=== PATIENT | male | born 1965 | race Caucasian/White ===

== ENCOUNTER → 2016-05-01 | Outpatient (CLI) | payer BC ==
--- NOTE | 2016-05-01 22:04 | PN ---
DATE OF SERVICE: 05/01/2016 This 51-year-old gentleman has been followed in the sleep center. He is here to discuss results of sleep studies and to check on his treatment with CPAP. I discussed results of his sleep studies with the patient in detail. He has extremely severe obstructive sleep apnea-hypopnea syndrome with apnea-hypopnea index of 64.2 with oxygen desaturation to 46.5%. By results of our sleep study at the pressure of 11, patient's respiration was mostly under control. At present patient is on treatment with CPAP. I checked his CPAP unit. Usage is 22 out of 30 nights for more than 4 hours, which demonstrated acceptable compliance. Pressure is 11 cm of water. Leak is 4 L/minute, which is not significant. Apnea-hypopnea index reading from the machine is 18.2, which is above the range which I want to see. Patient feels better with the machine during the night and during the day. [place] Sleepiness Scale today is 9. MEDICATIONS: None. During physical exam, patient is in no distress, but blood pressure was increased to 189/122. Patient indicates that sometimes he feels nervousness when he is in the physician's office, and he is also under stress related to his work. He does not feel any shortness of breath, chest pain, headache or dizziness. Heart rate is about 100. RR 14. Weight 268.4. Temperature 98.0. Oxygen saturation at room air 98%. HEENT: PERRLA, EOMI. Evaluation of oropharynx showed tongue protrudes midline; low position of soft palate. NECK: Supple. No JVD. Thyroid is not palpable. LUNGS: Clear to percussion and to auscultation. Good air exchange. No wheezing or rhonchi. HEART: S1, S2 tachycardic. ABDOMEN: Soft and nontender. Bowel sounds are present. No organomegaly appreciated. EXTREMITIES: No clubbing or cyanosis. LABOR RELATIONS SPECIALIST: Awake, alert, and oriented x3. Cranial nerves 2 to 7 intact. There is no fasciculation or atrophy noted. No focal deficits observed. IMPRESSION: 1. Severe obstructive sleep apnea-hypopnea syndrome. Apnea-hypopnea index 64.2 with oxygen desaturation severely low at 46.5%. Patient has demonstrated good compliance with treatment and is benefiting from treatment. Respiration has improved, but not normalized by results of reading from the machine. 2. Obesity. 3. Hypertension in the office. PLAN: 1. I changed the machine regimen to automated up to 20 cm of water. 2. Patient will continue to use equipment every night for the whole night. 3. Losing weight. 4. Patient will monitor his blood pressure, preferably 2 or 3 times a day for several days, and follow with the primary care physician for monitoring blood pressure and, if necessary, treatment with medications. 5. Low-sodium diet. 6. Patient may use valerian root during the day for nervousness; may buy it over the counter. 7. No driving if feeling any sleepiness. 8. I will see the patient for follow-up visit in one month. Thank you very much for allowing me to participate in the management your patient. Sincerely, Jacobo Vázquez MD, PhD, FAASM. Diplomat of [place] [employer], Sleep Medicine Board by [place] [employer], [place] [employer]
== END | disposition home or self-care (01) ==
LOC: SLEEP 14:13
PROVIDERS: ATTEND Internal Medicine
DX: G47.33 Obstructive sleep apnea (adult) (pediatric) (principal); I10 Essential (primary) hypertension; E66.9 Obesity, unspecified; Z99.89 Dependence on other enabling machines and devices

== ENCOUNTER → 2016-06-13 | Outpatient (CLI) | payer BC ==
--- NOTE | 2016-06-13 20:15 | PN ---
DATE OF SERVICE: 06/13/2016 This patient is a 51-year-old gentleman who has been followed in the sleep center for treatment of obstructive sleep apnea/hypopnea syndrome. During previous visit patient was at the pressure 11 cm of water, which by results of our sleep study was perfect for patient's respiration. By results of the sleep study in the office, apnea-hypopnea index at that pressure was 1.9. Patient slept with that pressure for about 1-1/2 hour, but during previous visit again his apnea-hypopnea index was increased to 18, and I switched his machine to automatic regimen with the range of pressure from 4 to 20 cm of water. Then patient tried to use the machine with this regimen, but he felt the pressure was too much, and he was not able to use it. Then pressure in the machine was changed to the range of 4 to around 15. At present patient comes for follow-up visit. He is trying to use his machine every night. I checked his CPAP unit. It is an automatic regimen, and most of the time pressure in the machine is around 15 cm of water. Leak is 17 L/minute. With this regimen, average apnea-hypopnea index was 12.6. For the last night it was ( ) it was only 9.6. Patient used it 26 out of 30 nights, but only about 12 nights for more than 4 hours. Leak is 17 L/minute. Sometimes, according to the patient, he has a leak from his mask to the eye area. He is using a full-face mask which also covers the nose. [place] Sleepiness Scale today is 9. MEDICATIONS: None. PHYSICAL EXAMINATION: Patient is in no distress. VITAL SIGNS: BP on the right arm 226/128 and on the left arm 224/125. No chest pain. No headache. No shortness of breath. Height 6 feet 2 inches. Weight 263. BMI 33.7. Temperature 97.9. Oxygen saturation at room air 100%. HEENT: PERRLA, EOMI. Evaluation of oropharynx showed tongue protrudes midline; extremely low position of soft palate. NECK: Supple. No JVD. Thyroid is not palpable. LUNGS: Clear to percussion and to auscultation. Good air exchange. No wheezing or rhonchi. HEART: S1, S2 regular. No murmurs, gallops or rubs. ABDOMEN: Obese. EXTREMITIES: No clubbing or cyanosis. SENIOR INFORMATION SYSTEMS ARCHITECT: Awake, alert, and oriented x3. Cranial nerves 2 to 7 intact. There is no fasciculation or atrophy noted. No focal deficits observed. IMPRESSION: 1. Obstructive sleep apnea-hypopnea syndrome, improved on treatment with CPAP but not normalized to the normal range. Patient has difficulties tolerating high CPAP pressure. With the pressure of 15 cm of water, he is able to use his CPAP every night. 2. Obesity. 3. Extremely high blood pressure noticed today without any chest pain, shortness of breath or headache. PLAN: 1. Continue treatment with CPAP every night. Patient is benefiting from CPAP. Respiration improved comparing with extremely severe results of respiratory abnormalities during diagnostic sleep study. At that time apnea-hypopnea index was 64.2 with oxygen desaturation to 46.5%. 2. Losing weight. 3. We will try a different style of the full-face mask. 4. I believe patient will be a candidate for treatment with BiPAP. 5. Followup with primary care physician for monitoring of blood pressure and treatment of hypertension. Thank you very much for allowing me to participate in the management your patient. Sincerely, Jacobo Vázquez MD, PhD, FAASM. Diplomat of [place] [employer], Sleep Medicine Board by [place] [employer], [place] [employer]
== END | disposition home or self-care (01) ==
LOC: SLEEP 15:11
PROVIDERS: ATTEND Internal Medicine
DX: G47.33 Obstructive sleep apnea (adult) (pediatric) (principal); I10 Essential (primary) hypertension; E66.9 Obesity, unspecified; Z68.33 Body mass index [BMI] 33.0-33.9, adult; Z99.89 Dependence on other enabling machines and devices